=== PATIENT | female | born 1940 | race Caucasian/White ===

== ENCOUNTER 2021-10-20 10:43 | Emergency (ER) | payer MEDICARE, OTHER ==
[~2021-10-20 10:43] MED LIST: ASCORBIC ACID500 MG PO; ASPIRIN CHEWABL81 MG PO; AZITHROMYCIN250 MG PO; CALCIUM + VITA1 EACH PO; CEFDINIR300 MG PO; CERTAGEN1 EACH PO; COLACE100 MG PO; CRESTOR10 MG PO; CYMBALTA 30MG C30 MG PO; HCTZ12.5 MG PO; KRILL OIL 3001 EACH PO; LEVBID0.375 MG PO; LOPRESSOR50 MG PO; MUCINEX 600MG600 MG PO; NEURONTIN100 MG PO; NITROQUIK SL0.4 MG SL; PLAVIX75 MG PO; PROBIOTIC1 EAC1 PO; VITAMIN D31000 UNI1 PO
== END 2021-10-20 14:03 | disposition home or self-care (01) ==
LOC: FER 10:43
DX: S90.31XA Contusion of right foot, initial encounter (principal); S90.01XA Contusion of right ankle, initial encounter; I25.2 Old myocardial infarction; I10 Essential (primary) hypertension; Z88.1 Allergy status to other antibiotic agents; Z88.5 Allergy status to narcotic agent; Z88.8 Allergy status to other drugs, medicaments and biological substances; Z91.09 Other allergy status, other than to drugs and biological substances; Z86.73 Personal history of transient ischemic attack (TIA), and cerebral infarction without residual deficits; W23.0XXA Caught, crushed, jammed, or pinched between moving objects, initial encounter; Y92.009 Unspecified place in unspecified non-institutional (private) residence as the place of occurrence of the external cause
CPT/HCPCS: 73610; 73630

== ENCOUNTER 2021-12-02 18:06 | Emergency (ER) | payer MEDICARE, OTHER | END 2021-12-03 00:12 | disposition home or self-care (01) | LOC: FER 18:06 | DX: S61.213A Laceration without foreign body of left middle finger without damage to nail, initial encounter (principal); S61.211A Laceration without foreign body of left index finger without damage to nail, initial encounter; I10 Essential (primary) hypertension; I48.91 Unspecified atrial fibrillation; Z23 Encounter for immunization; Z79.01 Long term (current) use of anticoagulants; Z88.8 Allergy status to other drugs, medicaments and biological substances; Z91.09 Other allergy status, other than to drugs and biological substances; Z79.899 Other long term (current) drug therapy; W26.0XXA Contact with knife, initial encounter; Y93.89 Activity, other specified; Y92.009 Unspecified place in unspecified non-institutional (private) residence as the place of occurrence of the external cause | CPT/HCPCS: 90471; 90715; 99282 ==